=== PATIENT | male | born 1960 | race Caucasian/White ===

== ENCOUNTER → 2016-08-01 | Outpatient (CLI) | payer BC ==
[~2016-08-01] MED LIST: GADOBUTROL 10 MMOL/10 ML VIAL IV ONE
--- NOTE | 2016-08-01 12:58 | RAD ---
PROCEDURE MRI brain without and with contrast. HISTORY Vision changes, temporary blindness in the right eye 3 days ago TECHNIQUE Multiplanar, multi sequential pre and post contrast MR imaging was performed of the brain. Contrast: 10 cc Gadavist COMPARISON None FINDINGS There is no restricted diffusion suggestive of a recent infarct or cytotoxic edema. There is no intra-axial mass effect, midline shift, extra-axial fluid collection. No nodular parenchymal or leptomeningeal enhancement is identified. Ventricles, sulci, cisterns are within normal limits in size and configuration. There is no significant focal signal abnormality including hemosiderin deposition of the brain parenchyma. There is preservation of the major arterial intracranial flow voids at the skull base. Mastoid air cells are aerated. There is mild maxillary sinus mucosal thickening, also patchy mild bilateral ethmoid air cell mucosal thickening. Frontal sinus is not pneumatized. Globes are symmetric in size and signal characteristics. IMPRESSION 1. There is no significant intracranial abnormality. Electronically signed by: Rafael Momin MD (Aug 01, 2016 12:57:04)
== END | disposition home or self-care (01) ==
LOC: MRI 10:42
PROVIDERS: ATTEND Physician Assistant Medical
DX: H53.9 Unspecified visual disturbance (principal)
CPT/HCPCS: 70553; A9585

== ENCOUNTER → 2019-06-14 | Outpatient (CLI) | payer BC ==
--- NOTE | 2019-06-14 12:06 | KCIC ---
EXAMINATION: Magnetic resonance imaging (MRI) of the cervical spine without contrast 06/14/2019 10:15 AM HISTORY: Cervicalgia. Acute left upper extremity pain and numbness for 5 weeks. TECHNIQUE: Multiplanar multi-weighted MRI of the cervical spine was performed without intravenous contrast using the standard cervical spine protocol. Contrast information: None administered COMPARISON: None available. FINDINGS: There is minimal retrolisthesis of C5 on C6. Mild disc height loss at C5-C6 with Modic type II endplate degenerative changes. There is disc desiccation at all levels of the cervical spine. Vertebral body heights are maintained. Moderate intramarginal ossified ptosis is present. No acute fracture is present. No marrow edema. Cervical spinal cord signal intensity is normal on all sequences. Visualized portions of the posterior fossa appear normal. Vertebral artery flow voids are maintained. There is no prevertebral soft tissue swelling. No paraspinal soft tissue abnormality is identified. C2-C3: There is mild disc bulge. No significant facet arthropathy. Mild uncovertebral joint disease. No neuroforaminal or spinal canal stenosis. C3-C4: There is mild disc bulge. Mild uncovertebral joint disease. No significant facet arthropathy. Mild bilateral neuroforaminal stenosis. No spinal canal stenosis. C4-C5: There is mild disc bulge. Mild facet and uncovertebral joint disease. Mild left neuroforaminal stenosis. No spinal canal stenosis. C5-C6: There is a posterior disc osteophyte complex. There is mild facet arthropathy. Moderate uncovertebral joint disease. Moderate to severe bilateral neuroforaminal stenosis. Mild spinal canal stenosis, exacerbated by ligamentum flavum infolding. No compression of the cord or cord signal alteration. C6-C7: There is a disc bulge. There is mild facet and uncovertebral joint disease. Moderate to severe bilateral neuroforaminal stenosis. Mild spinal canal stenosis without deformity of the cord. C7-T1: Disc is normal in configuration. No neuroforaminal or spinal canal stenosis. IMPRESSION: Moderate degenerative changes of the cervical spine, most prominent at C5-C6 and C6-C7 as described in detail above. Electronically signed by: Sandy Barnes MD (06/14/2019 12:03 PM) [facility]
== END | disposition home or self-care (01) ==
LOC: KCIC MRI 10:10
PROVIDERS: ATTEND Physician Assistant Medical
DX: M50.21 Other cervical disc displacement, high cervical region (principal); M48.02 Spinal stenosis, cervical region; M47.812 Spondylosis without myelopathy or radiculopathy, cervical region; M25.78 Osteophyte, vertebrae; M12.88 Other specific arthropathies, not elsewhere classified, other specified site
CPT/HCPCS: 72141

== ENCOUNTER → 2019-08-04 | Outpatient (CLI) | payer BC ==
[~2019-08-04] MED LIST changes: +CELE100C PO; -GADOBUTROL 10 MMOL/10 ML VIAL IV ONE; +IOHEXOL 180 MG/ML 10 ML VIAL. ONE; +methylPREDNISolone ACETATE 40 MG/ML VIAL. ONE; +methylPREDNISolone ACETATE 80 MG/ML VIAL. ONE
--- NOTE | 2019-08-04 21:38 | PAIN ---
DATE OF SERVICE: 08/04/2019 INITIAL CONSULTATION FOR PAIN CLINIC CHIEF COMPLAINT: Neck and left upper extremity pain. HISTORY OF PRESENT ILLNESS: This is a 59-year-old male who presents with history of pain since about 12/2018. The pain in the base of the neck, shoulder on the left side radiating to the left upper extremity into the arm, bicep and tricep region as well as the forearm anteriorly and posteriorly into the thumb and first and second fingers with some numbness and tingling in the hand. The patient reports it is getting worse with time, not a result of any specific injury or action he is aware of, but it is getting worse as time goes on. The pain is not resolved. He tried some stretching and strengthening exercises, also has tried chiropractic treatment in the past without significant improvement. He is taking Tylenol as well as Celebrex, both of which do decrease the pain, but only mildly. The patient had no other formal physical therapies or other treatments at this time. The patient did have MRI scan of the cervical spine showing moderate degenerative changes of cervical spine, most prominent at C5-C6 and C6-C7 with moderate to severe bilateral neural foraminal stenosis and mild spinal canal stenosis at C6-C7 and mild facet arthropathy with moderate to severe bilateral neural foraminal stenosis at C5-C6 as well. The patient reports it is worse with repetitive motions, reaching over his head with his left hand, reaching forward, lifting items, driving the car with his left arm and awakens him from sleep at least twice a night, does not affect his bowel or bladder control or his ability to walk, reports it is generally better at rest, but it can awaken him from sleep. The patient describes the pain as constant, throbbing, tingling, numbness, radiating pain in the left arm and hand, especially thumb and first and second fingers burning, aching, and changes during the day with activity. The patient rates his disability rate from 0-10, 10 being the worst, is a 6 with family home responsibilities and social activity, 7 with recreation and occupation, 8 with sexual behavior, 0 with self-care and, 1 with life support activities. PAST MEDICAL HISTORY: Significant for hearing loss, the patient wears hearing aids, wears glasses, diverticulosis, arthritis, low back pain. SURGICAL HISTORY: Previous surgeries include lumbar laminectomy in 2016, diverticulosis surgery with colostomy, which was then taken down in 1997. CURRENT MEDICATIONS: Include Tylenol and Celebrex. ALLERGIES: THE PATIENT IS ALLERGIC TO MORPHINE. FAMILY HISTORY: Significant for lung disease, cancers, heart disease and diverticulitis. SOCIAL HISTORY: The patient drinks about 4 beers a week. No other alcohol use, chewing tobacco. He does not smoke. Denies any illegal, illicit or recreational drugs. He is , lives with his spouse, lives locally in [place], [place]. REVIEW OF SYSTEMS: The patient's review of systems is positive for those items mentioned in history of present illness. All systems reviewed and otherwise negative. It is complete, full and well documented on the patient's chart. PHYSICAL EXAMINATION: VITAL SIGNS: The patient's blood pressure 133/74, pulse 83, respirations 18, temperature 98.2 degrees Fahrenheit, height is 5 feet 10 inches, weight is 262 pounds. GENERAL: The patient is awake, alert, oriented, appropriate, very pleasant demeanor. HEENT: Head shows normocephalic, atraumatic. Extraocular movements are intact and symmetrical. Oral cavity: Mucous membranes moist and pink. Dentition is intact. NECK: Shows anterior throat supple without palpable lymphadenopathy noted. Swallow reflex symmetrical. CHEST: Shows normal on inspection. Breath sounds are clear bilaterally. HEART: Shows S1, S2 clear. No murmurs auscultated. ABDOMEN: Obese, soft, nontender, nondistended. No palpable organomegaly is noted. No rebound or guarding demonstrated. BACK: Shows spine grossly in the midline, normal-appearing cervical lordotic curvature and thoracic kyphotic curvature, minor flattening of lumbar lordotic curvature with well-healed surgical scar in the lumbar distribution. Cervical paraspinous muscle shows symmetrical on inspection, with palpation shows some mild tenderness inferiorly in the lower cervical paraspinous musculature, more on the left than the right, but present bilaterally. This is true into the superior medial and lateral trapezius bilaterally, but more tender on the left than the right, without asymmetry, without trigger points, without radiation. The patient has full rotational motion of cervical spine, both laterally greater than 45 degrees closer to 90 degrees as well as full 90 degrees, full extension, full forward flexion chin to chest without difficulty. EXTREMITIES: The patient's upper extremities show deep tendon reflexes at 2+ in the biceps, triceps tendons. Motor exam is strong with programmer business strength rated at 5/5 as is bicep and tricep flexion. Peripheral pulses are 2+ radial distribution. No peripheral edema is noted bilaterally. Shoulder shrug is strong and intact without loss of strength on resistance as is abduction of shoulder to 90 degrees. Some minor pain in the base of the left shoulder and deltoid, but no loss of strength with any of these maneuvers. SKIN: Shows warm and dry, good turgor. No edema. No sores, rashes or bruising. IMPRESSION: 1. This is a 59-year-old male who has history of approximately 7 months increased pain, base of the neck, left upper extremity in a radicular fashion. 2. MRI scan of cervical spine as noted. 3. Arthritis. 4. Hearing loss. PLAN: Options were discussed with the patient including conservative medical management, physical therapy, interventional techniques. He would like to pursue interventional techniques. We discussed a cervical epidural steroid injection using description as well as anatomical models to describe the procedure. Risks were then discussed including, but not limited to bleeding, infection, possibility of epidural hematoma, subsequent neurological compromise, dural puncture, headaches, spinal cord and/or nerve damage, side effects of steroid medication and poor results regarding pain control. The patient understands and wished to proceed. The patient will return to clinic in approximately 2 weeks for followup. He was counseled on return appointment, activity level and side effects to be aware of. DIAGNOSES: Cervical radiculopathy with cervical spinal stenosis and cervical degenerative disk disease. PROCEDURE: Cervical epidural steroid injection, translaminar approach C6-C7 level using C-arm fluoroscopic guidance under sterile prep and drape using local anesthetic. MEDICATION INJECTED: A total of 120 mg Depo-Medrol plus 5 mL of preservative-free normal saline and 2 mL of contrast. CONDITION AT DISCHARGE: Stable. The patient tolerated the procedure well, had no complications. BRITTANY AVILA MD DR: KATE/candice JOB#: [id number] / [id number]
== END ==
LOC: PNCL 10:18
PROVIDERS: ATTEND Anesthesiology
DX: M50.123 Cervical disc disorder at C6-C7 level with radiculopathy (principal); M48.02 Spinal stenosis, cervical region; K57.30 Diverticulosis of large intestine without perforation or abscess without bleeding; Z87.39 Personal history of other diseases of the musculoskeletal system and connective tissue; Z93.3 Colostomy status; Z98.890 Other specified postprocedural states; Z88.6 Allergy status to analgesic agent; Z72.89 Other problems related to lifestyle
CPT/HCPCS: 62321; J1030; J1040; Q9965

== ENCOUNTER → 2019-08-18 | Outpatient (CLI) | payer BC ==
--- NOTE | 2019-08-18 14:01 | PAIN ---
DATE OF SERVICE: 08/18/2019 PROGRESS NOTE FOR PAIN CLINIC DIAGNOSES: Cervical radiculopathy with cervical spinal stenosis, cervical degenerative disk disease. HISTORY OF PRESENT ILLNESS: The patient is a 59-year-old male, who returns for followup, status post cervical epidural steroid injection x 1. The patient reports his back is doing much better and upper neck and shoulders, but still some significant pain radiating to the left upper extremity. The patient reports he has been increasing his activity with greater ability to do work activities, home activities with much greater ease and comfort, sleeping better at night, does not awaken him from sleep most nights, but does occasionally if he lays on his left side. The patient reports his pain is 8 on a scale of 10 at its worst over the past week, 7 on average, 6 at its least and is a 7 today. The patient reports it is aching and dull, tingling, becoming more constant with time, but again improved significantly after the first injection by about 50%. The patient reports no new motor or sensory deficits, no new changes. PHYSICAL EXAMINATION: VITAL SIGNS: The patient's blood pressure 123/83, pulse 80, respirations 18, temperature 97.7 degrees Fahrenheit, weight is 267 pounds. GENERAL: The patient is awake, alert, oriented, appropriate, very pleasant demeanor. HEENT: Shows normocephalic, atraumatic. Extraocular movements are intact and symmetrical. Oral cavity: Mucous membranes moist and pink. Dentition is intact. NECK: Shows anterior throat supple without palpable lymphadenopathy noted. Swallow reflex symmetrical. CHEST: Shows normal on inspection. Breath sounds clear to auscultation bilaterally. HEART: Shows S1, S2 clear. No murmurs auscultated. ABDOMEN: Soft, nontender, nondistended. BACK: Shows spine grossly in the midline. Normal-appearing thoracic kyphosis and some minor flattening of lumbar lordotic curvature. Well-healed surgical scar noted in the lumbar distribution. Lumbar paraspinous muscle shows symmetrical on inspection, on palpation shows some moderate tenderness diffusely in the cervical paraspinous muscles bilaterally in the inferior aspect of the cervical paraspinous muscles, also into the superior medial trapezius, but only diffusely. The patient has good rotational motion of cervical spine, both laterally as well as extension and flexion without significant difficulty. EXTREMITIES: The patient's upper extremities show deep tendon reflexes at 2+ in the patellar, 2+ in the biceps and triceps tendons. Motor exam is strong with business management consultant strength rated at 5/5 as is bicep and tricep flexion. Peripheral pulses are 2+ radial. No peripheral edema is noted. Shoulder shrug is strong and intact without loss of strength on resistance. Options were discussed with the patient. The patient's old chart was reviewed as his current medication regimen updated. Current review of systems updated today as well. We will proceed with a second in the series of cervical epidural steroid injection today with fluoroscopic guidance. Risks were again discussed including, but not limited to bleeding, infection, possibility of epidural hematoma, subsequent neurological compromise, dural puncture, headaches, spinal cord and/or nerve damage, side effects of steroid medication and poor results regarding pain control. The patient understands and wished to proceed. The patient will return to clinic in approximately 2 weeks for followup. He was counseled on return appointment, activity level and side effects to be aware of. DIAGNOSES: Cervical radiculopathy with cervical spinal stenosis, cervical degenerative disk disease. PROCEDURE: Cervical epidural steroid injection, translaminar approach at C6-C7 level using C-arm fluoroscopic guidance under sterile prep and drape using local anesthetic. MEDICATION INJECTED: A total of 120 mg Depo-Medrol plus 5 mL of preservative-free normal saline and 2 mL of contrast. CONDITION AT DISCHARGE: Stable. The patient tolerated procedure well, had no complications. BRITTANY AVILA MD DR: KATE/candice JOB#: [id number] / [id number]
== END ==
LOC: PNCL 10:14
PROVIDERS: ATTEND Anesthesiology
DX: M50.123 Cervical disc disorder at C6-C7 level with radiculopathy (principal); M48.02 Spinal stenosis, cervical region
CPT/HCPCS: 62321; J1030; J1040; Q9965

== ENCOUNTER → 2019-09-01 | Outpatient (CLI) | payer BC ==
[~2019-09-01] MED LIST changes: -IOHEXOL 180 MG/ML 10 ML VIAL. ONE; +IOHEXOL 240 MG/ML 50ML VIAL. ONE
--- NOTE | 2019-09-01 13:39 | PAIN ---
DATE OF SERVICE: 09/01/2019 PROGRESS NOTE FOR PAIN CLINIC DIAGNOSES: 1. Cervical radiculopathy with cervical degenerative disk disease and cervical spinal stenosis. 2. Lumbar radiculopathy with lumbar post-laminectomy syndrome. HISTORY OF PRESENT ILLNESS: The patient is a 59-year-old male who returns for followup status post cervical epidural steroid injection x 2. The patient reports about 10% improvement after the last injection overall. The patient reports initially it was about 70%, but the pain began to return in his neck and left upper extremity and is still fairly painful with activity, repetitive motions, reaching items and lifting items with weightbearing on the left arm. The patient reports it is an 8 on a scale of 10 at its worst over the past week, 6 on average, 6 at its least and is a 6 today. The patient describes it as tingling and burning, dull in the base of the neck, aching and shooting into the left upper extremity and into the thumb and first finger. The patient reports no new motor or sensory deficits or other complaints. The patient reports it does awaken him from sleep at night, but only about once every 6 hours. PHYSICAL EXAMINATION: VITAL SIGNS: The patient's blood pressure 137/72, pulse 77, respirations 18, temperature 97.6 degrees Fahrenheit, height is 5 feet 10 inches, weight is 269 pounds. GENERAL: The patient is awake, alert, oriented, appropriate, very pleasant demeanor. HEENT: Shows normocephalic, atraumatic. Extraocular movements are intact and symmetrical. Oral cavity: Mucous membranes moist and pink. Dentition is intact. NECK: Shows anterior throat supple without palpable lymphadenopathy noted. Swallow reflex symmetrical. CHEST: Shows normal on inspection. Breath sounds clear bilaterally. HEART: Shows S1, S2 clear. No murmurs auscultated. ABDOMEN: Soft, nontender, nondistended. No palpable organomegaly is noted. No rebound or guarding demonstrated. BACK: Shows spine grossly in the midline. Normal appearing thoracic kyphosis and lumbar lordotic curvature is slightly flattened with well-healed surgical scar noted. Lumbar paraspinous muscle shows symmetrical on inspection, on palpation shows some moderate tenderness diffusely bilaterally going diffusely without radiation. The patient's neck shows cervical spine with normal lordotic curvature, with palpation shows some moderate tenderness throughout the middle and lower distribution of paraspinous musculature, more on the left than the right, but present bilaterally with good rotational motion of the cervical spine, however, both laterally as well as extension and flexion, right and left lateral rotation without significant pain reported. EXTREMITIES: The patient's upper extremities show deep tendon reflexes at 2+ in the biceps and triceps tendons. Motor exam is strong with maintenance scheduler strength rated at 5/5 and equal bilaterally. Peripheral pulses are 2+ in radial distribution. No peripheral edema is noted. Options were discussed with the patient. The patient's old chart was reviewed as his current medication regimen updated. Current review of systems updated today as well. We will proceed with a third in the series of cervical epidural steroid injection today with fluoroscopic guidance. Risks were again discussed including, but not limited to bleeding, infection, possibility of epidural hematoma, subsequent neurological compromise, dural puncture, headaches, spinal cord and/or nerve damage, side effects of steroid medication and poor results regarding pain control. The patient understands and wished to proceed. The patient will return to clinic in approximately 2 weeks for followup. He was counseled on return appointment, activity level and side effects to be aware of. DIAGNOSES: Cervical radiculopathy with cervical spinal stenosis and cervical degenerative disk disease. PROCEDURE: Cervical epidural steroid injection, translaminar approach at C6-C7 level using C-arm fluoroscopic guidance under sterile prep and drape using local anesthetic. MEDICATION INJECTED: A total of 120 mg Depo-Medrol plus 5 mL of preservative-free normal saline and 2 mL of contrast. CONDITION AT DISCHARGE: Stable. The patient tolerated the procedure well, had no complications. BRITTANY AVILA MD DR: KATE/candice JOB#: [id number] / [id number]
== END ==
LOC: PNCL 10:01
PROVIDERS: ATTEND Anesthesiology
DX: M50.123 Cervical disc disorder at C6-C7 level with radiculopathy (principal); M54.16 Radiculopathy, lumbar region; M96.1 Postlaminectomy syndrome, not elsewhere classified; M48.061 Spinal stenosis, lumbar region without neurogenic claudication
CPT/HCPCS: 62321; J1030; J1040; Q9966

== ENCOUNTER → 2019-11-01 | Outpatient (CLI) | payer BC ==
[~2019-11-01] MED LIST changes: +HYDR-2763 PO; -IOHEXOL 240 MG/ML 50ML VIAL. ONE; +TRAM100T36 PO; -methylPREDNISolone ACETATE 40 MG/ML VIAL. ONE; -methylPREDNISolone ACETATE 80 MG/ML VIAL. ONE
== END | disposition home or self-care (01) ==
LOC: LAB 14:23
PROVIDERS: ATTEND Internal Medicine Gastroenterology
DX: Z01.812 Encounter for preprocedural laboratory examination (principal); Z11.59 Encounter for screening for other viral diseases; Z86.010 Personal history of colon polyps
CPT/HCPCS: 36415; 87635

== ENCOUNTER → 2019-11-04 | Day surgery (SDC) | payer BC ==
[~2019-11-04] MED LIST changes: +IV RINGERS,LACTATED 1000ML 1,000 ML IV SCH; +LIDOCAINE 2% PF 5 ML VIAL. ONE; +PROPOFOL 10 MG/ML (20ML) VIAL. IV ONE
[2019-11-04 09:42] VITALS: BP 140/75
--- NOTE | 2019-11-04 09:48 | HP ---
ADMIT DATE: 11/04/2019 UPDATED HISTORY AND PHYSICAL REASON: History of colonic polyps. REFERRING PHYSICIAN: CRISTHIAN Nobles HISTORY OF PRESENT ILLNESS: A 59-year-old male with past medical history significant for colonic polyps, diverticulosis, osteoarthritis, is seen for interval colonoscopy. Bowel habits are regular without diarrhea or constipation. There has been no melena and/or hematochezia. Weight and appetite are stable. He is otherwise without additional complaints. PAST MEDICAL HISTORY: Diverticular disease, colonic polyps, osteoarthritis. ALLERGIES: MORPHINE. MEDICATIONS: Include hydrocodone, tramadol. FAMILY HISTORY: Significant for lung cancer in both parents, stroke with a grandmother, cirrhosis with a grandfather, dementia with another grandmother. SOCIAL HISTORY: He is a social drinker, does chew tobacco. PAST SURGICAL HISTORY: Noncontributory. REVIEW OF SYSTEMS: Per records. PHYSICAL EXAMINATION: GENERAL: Reveals a well-nourished, well-developed male who is alert, cooperative, in no acute distress. VITAL SIGNS: Temperature 97.6, pulse 68, respiratory rate 18. LUNGS: Clear. CARDIOVASCULAR: Reveals an S1, S2 without S3, S4 or appreciable murmur. ABDOMEN: Reveals a soft abdomen, normal bowel sounds, without appreciable hepatosplenomegaly. EXTREMITIES: Reveals no cyanosis, clubbing or edema. IMPRESSION AND PLAN: History of colonic polyps. Surveillance exam is recommended at this time. Risks and benefits of procedure including risk of hemorrhage and perforation requiring operation have been discussed and the patient is willing to proceed. LETITIA STEVENS MD DR: RICKEY/candice JOB#: [id number] / [id number] JUSTUS Andrade
--- NOTE | 2019-11-07 16:06 | PATHOLOGY ---
[facility] Accession Number: [id number] . 01 Material submitted: . cecum - CECAL POLYP . 02 Diagnosis: Colon biopsies, cecal polyp: - Hyperplastic polyp. (JPM:lesli; 11/07/2019) S 11/07/2019 0930 Local . 02 Comment: There are no adenomatous changes or evidence of malignancy. (JPM:lesli; 11/07/2019) . 02 Electronically signed: . Nakul Martínez MD, Pathologist NPI- [id number] . 01 Gross description: . The specimen is received in formalin, labeled "Roniki, Walter, cecal polyp" and consists of multiple fragments of lal tissue measuring 0.9 x 0.4 x 0.1 cm in aggregate which are entirely submitted in A1. ([facility]; 11/04/2019) JFQ/JFQ 11/04/2019 1639 Local . 02 Pathologist provided ICD-10: K63.5 . 02 CPT . 725165 Specimen Comment: A courtesy copy of this report has been sent to [phone], [phone] Specimen Comment: [id number] Specimen Comment: Report sent to / DR ALVARADO Performed at: 01 [facility] [address], [place] [id number] MD Jet Ramos MD Phone: [phone] Performed at: 02 [facility] [address], [place] [id number] MD Nakul Martínez MD Phone: [phone]
== END | disposition home or self-care (01) ==
LOC: ENDOS 08:04
PROVIDERS: ATTEND Internal Medicine Gastroenterology
DX: Z12.11 Encounter for screening for malignant neoplasm of colon (principal); D12.0 Benign neoplasm of cecum; K64.0 First degree hemorrhoids; K57.30 Diverticulosis of large intestine without perforation or abscess without bleeding; M19.90 Unspecified osteoarthritis, unspecified site; Z86.010 Personal history of colon polyps; Z88.8 Allergy status to other drugs, medicaments and biological substances; Z79.899 Other long term (current) drug therapy; Z80.1 Family history of malignant neoplasm of trachea, bronchus and lung; Z82.3 Family history of stroke
CPT/HCPCS: 45380; J2704; J3490; 45378

== ENCOUNTER → 2019-12-08 | Outpatient (CLI) | payer BC ==
[2019-11-04 09:42] VITALS: BP 140/75
[~2019-12-08] MED LIST changes: +DOCU-153 PO; +HYDR-2765 PO; -IV RINGERS,LACTATED 1000ML 1,000 ML IV SCH; -LIDOCAINE 2% PF 5 ML VIAL. ONE; -PROPOFOL 10 MG/ML (20ML) VIAL. IV ONE
[2019-12-08 14:02] LABS: BASO % 1 % (0-3); EOS # 0.2 x10^3/uL (0.0-0.7); EOS % 3 % (0-3); HEMATOCRIT 45.8 % (39.0-53.0); HEMOGLOBIN 15.3 g/dL (13.0-17.5); LYMPH # 2.6 x10^3/uL (1.0-4.8); LYMPH % 36 % (24-48); MEAN CORPUSCULAR HEMOGLOBIN 30 pg (25-35); MEAN CORPUSCULAR HGB CONC 33 g/dL (31-37); MEAN CORPUSCULAR VOLUME 89 fL (79-100); MONO # 0.7 x10^3/uL (0.0-1.1); MONO % 10 % (0-9); NEUT # 3.7 x10^3/uL (1.8-7.7); NEUT % 51 % (31-73); PLATELET COUNT 299 x10^3/uL (140-400); RED BLOOD COUNT 5.16 x10^6/uL (4.30-5.70); RED CELL DISTRIBUTION WIDTH 12.6 % (11.5-14.5); WHITE BLOOD COUNT 7.2 x10^3/uL (4.0-11.0)
[2019-12-08 14:19] LABS: ALBUMIN 3.6 g/dL (3.4-5.0); ALBUMIN/GLOBULIN RATIO 1.2 (1.0-1.7); CALCIUM 8.8 mg/dL (8.5-10.1); CREATININE 1.1 mg/dL (0.7-1.3); GFR 68.1; POTASSIUM 4.2 mmol/L (3.5-5.1); TOTAL BILIRUBIN 0.2 mg/dL (0.2-1.0); TOTAL PROTEIN 6.7 g/dL (6.4-8.2)
--- NOTE | 2019-12-12 09:55 | HP ---
ADMIT DATE: PREOPERATIVE HISTORY AND PHYSICAL Joe Martinez RN dictating for Dr. Arturo Mccord. DATE OF SURGERY: 12/14/2019. HISTORY OF PRESENT ILLNESS: The patient is a pleasant 59-year-old who underwent epidural steroid injections. He says it did not help with neck and left arm pain. He continues to notice numbness. He also has a tingling sensation and/or pain in his thumb and index and middle fingers. He rates his pain as 7-8/10. The problem is worse at night. Activity increases his pain. He uses ice and medications. He takes tramadol during the day and hydrocodone at night. PAST MEDICAL HISTORY: Gout and GERD. PAST SURGICAL HISTORY: Colostomy. FAMILY HISTORY: Aneurysm, cancer, heart disease and hypertension. SOCIAL HISTORY: Retired. . Does not smoke. Does not drink alcohol. ALLERGIES: No known drug allergies. CURRENT MEDICATIONS: Flexeril, Celebrex, tramadol, [place]. REVIEW OF SYSTEMS: A 12-point review of systems was obtained and is noncontributory except for that mentioned above. PHYSICAL EXAMINATION: GENERAL APPEARANCE: Alert, pleasant, in no acute distress. HEAD: Normocephalic and atraumatic. SKIN: Warm and dry. MUSCULOSKELETAL: Cervical paraspinal muscle bulk is normal, restricted range of motion of the cervical spine, [id number] tenderness of the mid and lower cervical spine with palpation. EXTREMITIES: No clubbing, cyanosis, or edema. NEUROLOGIC: Alert and oriented x 3, normal recent and remote memory. Strength 5/5 in bilateral upper and lower extremities. Sensory was intact to light touch in the upper and lower extremities bilaterally except for decreased light touch involving the thumb, index and middle fingers of his left hand, reflexes were trace and symmetric in bilateral upper and lower extremities, normal gait. IMAGING: Reviewed. I reviewed a cervical MRI scan from May 2019. On that study, there was significant foraminal narrowing, both at C5-C6 and C6-C7 bilaterally. ASSESSMENT: 1. Other spondylosis with radiculopathy, cervical region. 2. Cervicalgia. PLAN: I believe the problems at C5-C6 and C6-C7 are responsible for his left cervical radiculopathy. I have recommended a 2-level anterior cervical diskectomy and fusion. I did discuss this with him in detail including the technique, and surgery along with the risks. I outlined the surgery including risk of injury and carotid artery and stroke as well as injury to the trachea and esophagus, paralysis, failure to fusion, and . I outlined the expected postoperative course. He understands. He would like to go ahead with the surgery. We will make the arrangements. ARTURO MCCORD MD DR: MICKI/candice JOB#: [id number] / [id number]
== END ==
LOC: SURGPAT 12:39
PROVIDERS: ATTEND Neurological Surgery
DX: Z01.818 Encounter for other preprocedural examination (principal); Z11.59 Encounter for screening for other viral diseases; M54.2 Cervicalgia; M48.02 Spinal stenosis, cervical region; M54.12 Radiculopathy, cervical region
CPT/HCPCS: 36415; 80053; 85025; 87641; U0003

== ENCOUNTER 2019-12-14 10:01 | Observation (INO) | payer BC ==
[~2019-12-14] VITALS: Ht 177.8 cm; Wt 112.0 kg
[2019-12-14] VITALS (11 sets, daily range): BP systolic 111–133; BP diastolic 63–90
--- NOTE | 2019-12-14 06:51 | HP ---
ADMIT DATE: 12/14/2019 PREOPERATIVE HISTORY AND PHYSICAL DATE OF SURGERY: 12/14/2019. HISTORY OF PRESENT ILLNESS: The patient is a pleasant 59-year-old who underwent epidural steroid injections. He says it did not help with neck and left arm pain. He continues to notice numbness. He also has a tingling sensation and/or pain in his thumb and index and middle fingers. He rates his pain as 7-8/10. The problem is worse at night. Activity increases his pain. He uses ice and medications. He takes tramadol during the day and hydrocodone at night. PAST MEDICAL HISTORY: Gout and GERD. PAST SURGICAL HISTORY: Colostomy. FAMILY HISTORY: Aneurysm, cancer, heart disease and hypertension. SOCIAL HISTORY: Retired. . Does not smoke. Does not drink alcohol. ALLERGIES: No known drug allergies. CURRENT MEDICATIONS: Flexeril, Celebrex, tramadol, [place]. REVIEW OF SYSTEMS: A 12-point review of systems was obtained and is noncontributory except for that mentioned above. PHYSICAL EXAMINATION: GENERAL APPEARANCE: Alert, pleasant, in no acute distress. HEAD: Normocephalic and atraumatic. SKIN: Warm and dry. MUSCULOSKELETAL: Cervical paraspinal muscle bulk is normal, restricted range of motion of the cervical spine, tqmt-tf-wzelofar tenderness of the mid and lower cervical spine with palpation. EXTREMITIES: No clubbing, cyanosis, or edema. NEUROLOGIC: Alert and oriented x 3, normal recent and remote memory. Strength 5/5 in bilateral upper and lower extremities. Sensory was intact to light touch in the upper and lower extremities bilaterally except for decreased light touch involving the thumb, index and middle fingers of his left hand, reflexes were trace and symmetric in bilateral upper and lower extremities, normal gait. IMAGING: I reviewed a cervical MRI scan from May 2019. On that study, there was significant foraminal narrowing, both at C5-C6 and C6-C7 bilaterally. ASSESSMENT/ PLAN: I believe the problems at C5-C6 and C6-C7 are responsible for his left cervical radiculopathy. I have recommended a 2-level anterior cervical diskectomy and fusion. I did discuss this with him in detail including the technique, and surgery along with the risks. I outlined the surgery including risk of injury and carotid artery and stroke as well as injury to the trachea and esophagus, paralysis, failure to fusion, and . I outlined the expected postoperative course. He understands. He would like to go ahead with the surgery. We will make the arrangements. WEN MCCORD MD DR: MICKI/candice JOB#: [id number] / [id number] RENUKA
[~2019-12-14 10:01] MED LIST changes: +BACITRACIN 50,000 UNIT in IV NORMAL SALINE 1000ML BAG 1,000 ML IRR ONE; +BUPIVACAINE-EPI 0.5%-1:200000 MPF 30 ML VIAL. ONE; +DEXAMETHASONE SOD PHOS 20 MG/5 ML VIAL. ONE; -DOCU-153 PO; +GELATIN SPONGE SIZE 100. ONE; +HYDROmorphone 2 MG/ML VIAL IV PRN; +IV RINGERS,LACTATED 1000ML 1,000 ML IV SCH; +KETOROLAC 60 MG/2 ML VIAL. ONE; +LIDOCAINE 1% PF 2 ML VIAL. ID PRN; +LIDOCAINE 2% PF 5 ML VIAL. ONE; +MIDAZOLAM HCL/PF 2 MG/2 ML VIAL. ONE; +ONDANSETRON PF 4 MG/2 ML VIAL. IV PRN; +ONDANSETRON PF 4 MG/2 ML VIAL. ONE; +PROCHLORPERAZINE 10 MG/2 ML VIAL. IV PRN; +PROPOFOL 10 MG/ML (20ML) VIAL. IV ONE; +PROPOFOL 200 ML IV ONE; +REMIFENTANIL 2 MG VIAL. IV ONE; +ROCURONIUM 50 MG/5 ML VIAL. ONE; +SUCCINYLCHOLINE 200 MG/10 ML VIAL. ONE; +THROMBIN TOPICAL 20,000 UNIT SPRAY.SYRN KIT TP ONE; +ceFAZolin 2GM PREMIX 2 GM/50 ML BAG IV ONE; +fentaNYL PF VIAL 100 MCG/2 ML VIAL IV PRN; +fentaNYL PF VIAL 100 MCG/2 ML VIAL ONE
[2019-12-14] MEDS ORDERED: DESFLURANE > 120 MINUTES IH ONE (14:03)
[2019-12-14] MEDS ORDERED: REMIFENTANIL 2 MG VIAL. IV ONE (14:43)
[2019-12-14] MEDS ORDERED: fentaNYL PF VIAL 100 MCG/2 ML VIAL IVP PRN (15:15)
[2019-12-14] MEDS ORDERED: ONDANSETRON PF 4 MG/2 ML VIAL. IVP PRN (15:15)
[2019-12-14] MEDS ORDERED: HYDROcodone/APAP 7.5/325MG 1 TAB TABLET PO PRN (15:15)
[2019-12-14] MEDS ORDERED: diphenhydrAMINE HCL 25 MG CAPSULE PO PRN (15:15)
[2019-12-14] MEDS ORDERED: 0.9 % SODIUM CHLORIDE 10 ML DISP.SYRIN. IV PRN (15:15)
[2019-12-14] MEDS ORDERED: CALCIUM CARBONATE 500 MG TAB.CHEW PO PRN (15:15)
[2019-12-14] MEDS ORDERED: METHOCARBAMOL 750 MG TABLET PO PRN (15:15)
[2019-12-14] MEDS ORDERED: MAG HYDROX/ALUMINUM HYD/SIMETH 30 ML ORAL.SUSP PO PRN (15:15)
[2019-12-14] MEDS ORDERED: ACETAMINOPHEN 325 MG TABLET. PO PRN (15:15)
[2019-12-14] MEDS ORDERED: NALOXONE 0.4 MG/ML VIAL. IV PRN (15:15)
[2019-12-14] MEDS ORDERED: MAGNESIUM HYDROXIDE 2,400 MG/30 ML ORAL.SUSP. PO PRN (15:15)
[2019-12-14] MEDS ORDERED: NEOSTIGMINE METHYLSULFATE 5 MG/5 ML SYRINGE. ONE (15:50)
[2019-12-14] MEDS ORDERED: ePHEDrine PF IN SALINE 50 MG/10 ML SYRINGE. IV ONE (15:54)
[2019-12-14] MEDS: fentaNYL PF VIAL 100 MCG/2 ML VIAL IV PRN ×2 (16:39→16:46)
--- NOTE | 2019-12-14 16:47 | OP ---
DATE OF SURGERY: 12/14/2019 PREOPERATIVE DIAGNOSIS: Lateral recess and foraminal narrowing C5-C6, C6-C7 left with left cervical radiculopathy. POSTOPERATIVE DIAGNOSIS: Lateral recess and foraminal narrowing C5-C6, C6-C7 left with left cervical radiculopathy. OPERATION PERFORMED: Anterior cervical microdiscectomy C5-C6, C6-C7; anterior cervical interbody fusion, C5-C6, C6-C7 with interbody fusion cages, packed with allograft and autograft bone, anterior cervical plate, C5, C6, C7. The operation was done with EMG monitoring, SSEP monitoring, NIMS monitoring, motor evoked potentials. We used fluoroscopy, microscopic dissection. SURGEON: Arturo Mccord M.D. PLASTIC DUPLICATOR: THEODORA Painter assisted with the surgery. She assisted with the exposure, the microdecompression fusion, plate and closure. OPERATIVE INDICATIONS: The patient is a pleasant 59-year-old who developed intractable neck and left arm pain, which failed conservative measures. On imaging studies, he had above-mentioned findings and I recommended anterior cervical microdiscectomy and fusion. I spoke with him about the surgery and risks. He understood very well and he wished to go ahead. DESCRIPTION OF PROCEDURE: Following general endotracheal anesthesia, the patient was positioned supine on the operating room table. The anterior cervical region was then prepped and draped in standard fashion. KANIKA hose and AV impulse boots were applied for DVT prophylaxis. A microscope was draped. Fluoroscopy was draped and brought into field. Monitoring was established. Ancef 2 grams was given less than 1 hour prior to initiation of the surgery. Using fluoroscopic guidance, incision was made from the midline around to the right side in a skin crease, dissected down through skin and subcutaneous tissue, dissected around the medial aspect after sharply dividing the platysma. Sternocleidomastoid and carotid artery sheath down the anterior cervical vertebral body after reflecting the trachea and esophagus contralaterally, I placed Santa anterior retractors wedged in the longus colli muscle and exposed C5-C6 and C6-C7. I confirmed my position fluoroscopically. I brought in the high speed air drill and burred the spurring which allowed access to the disc space at C6-7 and then I worked laterally and performed discectomy with pituitary rongeurs. I drilled the posterior spurring and then used 1 and 2 mm micro Kerrisons to remove the annulus and opened the ligament with the arachnoid knife and worked bilaterally to trim the ligament and exposed the foramina. I assured that the foramina were open. I scraped cartilaginous endplate, measured and placed a 7 mm interbody fusion cage, which was packed with allograft and autograft bone. The autograft bone, I obtained saving the bone spurs and cage was not placed until I had obtained perfect hemostasis. Following this, then I removed distraction pin from C7 and moved to the C5 and distracted the disc space at C5-C6 and incised the annulus and performed a discectomy. Again, there was significant calcification and I trimmed this material away to gain access into the disc space and again performed a generous discectomy more posteriorly. I drilled the posterior spurring and opened the foramina bilaterally. At which point, the root was tightly compressed. I then obtained excellent hemostasis in the lateral gutters at C6-C7. I scraped cartilaginous endplate, measured and placed a 7 mm interbody fusion cage and then placed a [address] and used six 14 mm screws to secure the plate. I irrigated copiously, removed the retractor and I Valsalva the patient and assured myself of perfect hemostasis. I then closed the wound in layers with absorbable suture, skin with a 4-0 subcuticular stitch. I felt the surgery went very well and the patient was awakened uneventfully. The monitoring was excellent throughout. ARTURO MCCORD MD DR: MICKI/candice JOB#: [id number] / [id number] RENUKA
--- NOTE | 2019-12-14 17:30 | NUR ---
Patient arrived around 1715 from PACU in a bed. and sister at bedside. Soft collar in place. Dressing to right anterior neck dry and intact. Pain is being rated around a 5. Thigh high KANIKA hose on patient and MATILDE's. IV infusing properly without any complications noted. Patient and family were oriented to their room and the facility. No concerns at this time. Will continue to monitor.
[2019-12-14] MEDS: HYDROcodone/APAP 7.5/325MG 1 TAB TABLET PO PRN (17:32)
[2019-12-14] MEDS: DOCUSATE SODIUM 100 MG CAPSULE. PO SCH (21:05)
[2019-12-14] MEDS ORDERED: ceFAZolin SODIUM IV Push 1 GM VIAL. IVP SCH (22:00)
[2019-12-15] MEDS: POTASSIUM CL 20MEQ D5-0.45NACL 1,000 ML IV SCH ×2 (00:20→05:36)
[2019-12-15 02:43] VITALS: BP 133/67
[2019-12-15] MEDS: HYDROcodone/APAP 7.5/325MG 1 TAB TABLET PO PRN (02:47)
[2019-12-15 07:00] VITALS: BP 116/83
[2019-12-15] MEDS: DOCUSATE SODIUM 100 MG CAPSULE. PO SCH (09:06)
[2019-12-15] MEDS ORDERED: DOCU-153 PO (10:42)
--- NOTE | 2019-12-15 10:43 | DISCH ---
DISCHARGE INSTRUCTIONS Condition on Discharge Condition on Discharge: Stable Activity After Discharge Activity Instructions for Disc: Activity as tolerated, Avoid exertion Other activity instructions: no driving for a week, soft collar for comfort Bathing Instructions: Shower-keep dressing dry Lifting Instructions after Dis: No heavy lifting, No pulling or pushing, Do not lift >10 pounds Exercise Instruction after Dis: Exercise per therapy, Progress as tolerated Driving Instructions after Dis: Do not drive Diet after Discharge Additional Diet Restrictions: resume home diet, soft foods Wound Incision Care Wound/Incision Care: Ice to area for comfort, May get incision wet Other wound/incision instructi: May shower 48 hrs after surgery. Remove dressing and replace if desired Contacting the DR. after DC Call your doctor for: Concerns you may have Follow-Up Follow Up With: Dr Mccord's nurse in 2 weeks [phone] Treatment/Equipment after DC Adaptive Equipment Issued: None WEN MCCORD MD Dec 15, 2019 10:43
[2019-12-15 11:00] VITALS: BP 114/69
--- NOTE | 2019-12-15 11:42 | NUR ---
Patient left around 1140 with his . Dressing to anterior neck changed prior to dismissal per family request. Incision with no drainage noted or signs of infection present. Scripts given for robaxin and lortab to the patient. Discharge education addressed by this nurse in detail with the and patient. No concerns noted.
--- NOTE | 2019-12-15 19:45 | DS ---
DATE OF DISCHARGE: 12/15/2019 DATE OF SURGERY: 12/14/2019. DISCHARGE DIAGNOSES: Lateral recess stenosis and foraminal narrowing C5-C6, C6-C7 left with left cervical radiculopathy. OPERATION PERFORMED: Anterior cervical discectomy and fusion C5-C6, C6-C7. HISTORY OF PRESENT ILLNESS: The patient is a pleasant 59-year-old who developed intractable neck and left arm pain, which failed to improve with conservative measures. On imaging studies, he had the above-mentioned findings and I recommended an anterior cervical microdiskectomy and fusion. I spoke with him about the surgery and the risk. He understood and wished to proceed. HOSPITAL COURSE: He was admitted to the floor postoperatively where he has done well. He has been up ambulating in the room and in the halls. Physical therapy was initiated and instruction was given to him regarding his activities. He notes resolution of his left arm pain. He is in good condition to discharge home. DISCHARGE INSTRUCTIONS: He was instructed regarding incision care, activity restrictions and expectations for the next several weeks. He will follow up in our office in 2 weeks. He understands to call with any questions or concerns. WEN MCCORD MD DR: WILLIAMS/candice JOB#: [id number] / [id number]
--- NOTE | 2019-12-16 18:06 | PATHOLOGY ---
[facility] Accession Number: [id number] . 01 Material submitted: . vertebral column - CERVICAL DISC . 01 Clinical history: . Cervical stenosis, cervicalgia, radiculopathy . 02 Diagnosis: Segments of cartilaginous, fibroadipose, and skeletal muscle tissue and bone, cervical disc: - Degenerative changes of cartilaginous tissue. . ([facility]:mm; 12/16/2019) [facility] 12/16/2019 1539 Local . 02 Comment: There is no evidence of an acute inflammatory process or malignancy. . ([facility]:mm; 12/16/2019) . 02 Electronically signed: . Nakul Martínez MD, Pathologist NPI- [id number] . 01 Gross description: . The specimen is received in formalin, labeled "Walter Sutton, cervical disc". Received is a moderate amount of pale lal rubbery and gritty tissue admixed with small fragments of bone measuring 4.8 x 4.5 x 0.8 cm in aggregate dimensions. The specimen is submitted representatively in cassette A1, following light decalcification. ([facility]; 12/15/2019) [facility]A/[facility] 12/16/2019 1536 Local . 02 Pathologist provided ICD-10: M99.71, M54.2, M54.10 . 02 CPT . 560827, [id number] Specimen Comment: A courtesy copy of this report has been sent to [phone], [phone] Specimen Comment: [id number] Specimen Comment: Report sent to / DR ALVARADO Performed at: [address], [place], [place] [id number] MD Jet Ramos MD Phone: [phone] Performed at: 02 [facility] [address], [place] [id number] MD Nakul Martínez MD Phone: [phone]
== END 2019-12-15 11:45 | disposition home or self-care (01) ==
LOC: SURG 10:01 → 4 NORTH 16:30
PROVIDERS: ADMIT Neurological Surgery; ATTEND Neurological Surgery
DX: M48.02 Spinal stenosis, cervical region (principal); M54.12 Radiculopathy, cervical region; M10.9 Gout, unspecified; K21.9 Gastro-esophageal reflux disease without esophagitis; Z98.890 Other specified postprocedural states
CPT/HCPCS: 20930; 20937; 22551; 22552; 22853; 76000; 88304; 88311; 96365; 96366; 97161; C1713; G0378; G0379; J0330; J0690; J1100; J1885; J2250; J2405; J2704; J2710; J3010; J3480; J7030; J7120

== ENCOUNTER → 2020-12-26 | Outpatient (CLI) | payer BC ==
[~2020-12-26] MED LIST changes: -BACITRACIN 50,000 UNIT in IV NORMAL SALINE 1000ML BAG 1,000 ML IRR ONE; -BUPIVACAINE-EPI 0.5%-1:200000 MPF 30 ML VIAL. ONE; +CELE200C PO; -DEXAMETHASONE SOD PHOS 20 MG/5 ML VIAL. ONE; +DOCU-153 PO; -GELATIN SPONGE SIZE 100. ONE; -HYDROmorphone 2 MG/ML VIAL IV PRN; +IOHEXOL 180 MG/ML 10 ML VIAL. ONE; -IV RINGERS,LACTATED 1000ML 1,000 ML IV SCH; +KETO200T11 PO; -KETOROLAC 60 MG/2 ML VIAL. ONE; -LIDOCAINE 1% PF 2 ML VIAL. ID PRN; -LIDOCAINE 2% PF 5 ML VIAL. ONE; -MIDAZOLAM HCL/PF 2 MG/2 ML VIAL. ONE; -ONDANSETRON PF 4 MG/2 ML VIAL. IV PRN; -ONDANSETRON PF 4 MG/2 ML VIAL. ONE; -PROCHLORPERAZINE 10 MG/2 ML VIAL. IV PRN; -PROPOFOL 10 MG/ML (20ML) VIAL. IV ONE; -PROPOFOL 200 ML IV ONE; -REMIFENTANIL 2 MG VIAL. IV ONE; -ROCURONIUM 50 MG/5 ML VIAL. ONE; -SUCCINYLCHOLINE 200 MG/10 ML VIAL. ONE; -THROMBIN TOPICAL 20,000 UNIT SPRAY.SYRN KIT TP ONE; -ceFAZolin 2GM PREMIX 2 GM/50 ML BAG IV ONE; -fentaNYL PF VIAL 100 MCG/2 ML VIAL IV PRN; -fentaNYL PF VIAL 100 MCG/2 ML VIAL ONE; +methylPREDNISolone ACETATE 40 MG/ML VIAL. ONE; +methylPREDNISolone ACETATE 80 MG/ML VIAL. ONE
--- NOTE | 2020-12-26 09:52 | PDOC4 ---
Procedure Note: Procedure Note: Patient was consented for cervical epidural steroid injection. Risks were discussed including but not limited to: Bleeding, infection, possibility of epidural hematoma and subsequent neurological compromise, dural puncture, headaches, spinal cord and/or nerve damage, side effects of steroid medication, and poor results regarding pain control. Patient understands and wished to proceed. Procedure cervical epidural steroid injection at the C6-7 level, using local anesthetic under sterile prep and drape using C-arm fluoroscopic guidance under local anesthesia medications injected ;120 mg Depo-Medrol +5 mL normal saline and 2 mL contrast; condition at discharge is stable patient tolerated procedure well. and had no complications BRITTANY AVILA MD Dec 26, 2020 09:52
--- NOTE | 2020-12-26 09:52 | PDOC ---
Progress Note - Pain Clinic Date of Service: DOS: DATE: 12/26/20 TIME: 09:47 Diagnosis: Dx: Cervical radiculopathy the cervical spinal stenosis cervical degenerative disc disease and cervical postlaminectomy syndrome lumbar radiculopathy with lumbar postlaminectomy syndrome Right shoulder joint pain History or Present Illness: HPI: 60-year-old male returns for follow-up status post cervical epidural steroid injections last seen September 01, 2019. Patient had surgery last summer with cervical anterior fusion and discectomy with good results but reports still significant pain in the left upper extremity and left hand with numbness and tingling also patient fell about 1 week ago on his right shoulder while walking his dog with significant pain and difficulty with movement of the right shoulder. Patient has MRI scheduled tomorrow for the right shoulder but the appointment was made for today concerning his left upper extremity and numbness and tingling in the hand prior to his fall. Patient reports the pain is an 8 on scale 10 is worse over the past week 7 on average 6 its least and is a 7 today patient describes as sharp and tight tingling constant in the left hand and thumb and first finger hands were better after surgery but the left one has still has some persistent tingling and numbness also the base the neck right shoulder is tender with motion especially abduction and forward reaching since his fall last week. Patient reports no new motor or sensory deficits no new bowel or bladder incontinence patient reports initially was doing much better doing walking activities household activities work activities travel with greater ease and comfort with the pain again returning in left upper extremity and then since the fall his right shoulder. Physical Exam: VS: Blood pressure is 137/86 pulse 72 respirations 20 temperature 97.8 F weight is 262 pounds PE: PHYSICAL EXAMINATION: GENERAL: The patient is awake, alert, oriented, appropriate, very pleasant in demeanor HEENT: Shows normocephalic, atraumatic. Extraocular movements are intact and symmetrical. Patient wearing eyeglasses. Oral cavity: Mucous membranes moist and pink. Dentition is intact. NECK: Shows anterior throat supple without palpable lymphadenopathy noted. Swallow reflex symmetrical. CHEST: Shows normal on inspection. Breath sounds are clear bilaterally, distant but no rales or rhonchi. HEART: Shows S1, S2 clear. No murmurs auscultated. ABDOMEN: Soft, nontender, nondistended, obese. No palpable organomegaly is n oted. BACK: Shows spine grossly in the midline. Normal-appearing cervical lordotic curvature. Cervical paraspinous muscles show symmetrical inspection, on palpation some moderate tenderness diffusely in the inferior aspect the cervical paraspinous muscles diffusely without radiation. Patient shows full rotation motion cervical spine both laterally as well as extension flexion without significant difficulty. There is slightly increased thoracic kyphosis, some minor flattening of the lumbar lordotic curvature. Well-healed midline surgical scar is noted. Lumbar paraspinous muscles show symmetrical on inspection, on palpation shows some moderate tenderness diffusely throughout the upper, middle and lower distribution of the paraspinous muscles, but without specific trigger points, without radiation of pain. The patient has good rotational motion of the lumbar spine, both laterally as well as extension and flexion without significant difficulty. No tenderness over the spinous processes, sacrum or sacroiliac regions. EXTREMITIES: Lower extremities show deep tendon reflexes 1+ in the patellar and tendo calcaneus tendons. Motor exam is 5 on a scale of 5 with right dorsiflexion, extension, quadriceps and hamstring flexion and 5/5 on the left. Peripheral pulses are 1 posterior tibial. No peripheral edema is noted bilaterally. Lower extremities are warm and dry to touch, equal in color and appearance. Upper extremity show deep tendon reflexes 2+ in the bicep tricep tendons motor exam is strong with optoelectronic technician strength rated 5 out of 5 as is bicep and tricep flexion bilaterally. Peripheral pulses are 2+ radial no peripheral edema is noted. Patient's right shoulder shows significant tenderness with attempted abduction past about 40 degrees also with anterior reach both actively and passively significant tenderness over the anterior aspect of the deltoid with deep palpation is noted as well. Right side is normal. SKIN: Shows warm and dry, good turgor. No edema. No sores, rashes or bruising throughout. Procedure: Procedure: Options were discussed with patient. Patient chart reviewed his current medication regimen updated current review of systems updated today as well. We will proceed with a cervical epidural steroid injection today with fluoroscopic guidance. Risks were discussed including but not limited to: Bleeding, infection, possibility of epidural hematoma and subsequent neurological compromise, dural puncture, headaches, spinal cord and/or nerve damage, side effects of steroid medication, and poor results regarding pain control. Patient understands and wished to proceed. Patient will return to the clinic in approximate 2 weeks for follow-up, was counseled as to return appointment activity level and side effects to be aware of. Medication Injected: Med Injected: Procedure cervical epidural steroid injection at the C6-7 level, using local anesthetic under sterile prep and drape using C-arm fluoroscopic guidance under local anesthesia medications injected ;120 mg Depo-Medrol +5 mL normal saline and 2 mL contrast; condition at discharge is stable patient tolerated procedure well. and had no complications Condition at Discharge: Condition at Discharge: Condition at discharge stable, patient already the procedure well and had no complications. BRITTANY AVILA MD Dec 26, 2020 09:51
== END | disposition home or self-care (01) ==
LOC: PNCL 08:58
PROVIDERS: ATTEND Anesthesiology
DX: M50.10 Cervical disc disorder with radiculopathy, unspecified cervical region (principal); M48.02 Spinal stenosis, cervical region; M96.1 Postlaminectomy syndrome, not elsewhere classified; M25.511 Pain in right shoulder; G47.30 Sleep apnea, unspecified; M19.90 Unspecified osteoarthritis, unspecified site; Z72.89 Other problems related to lifestyle; Z88.6 Allergy status to analgesic agent; Z79.899 Other long term (current) drug therapy; Z98.890 Other specified postprocedural states
CPT/HCPCS: 62321; J1030; J1040; Q9965

== ENCOUNTER → 2020-12-27 | Outpatient (CLI) | payer BC ==
[~2020-12-27] MED LIST changes: -IOHEXOL 180 MG/ML 10 ML VIAL. ONE; -methylPREDNISolone ACETATE 40 MG/ML VIAL. ONE; -methylPREDNISolone ACETATE 80 MG/ML VIAL. ONE
--- NOTE | 2020-12-27 17:51 | KCIC ---
EXAM: MRI RIGHT SHOULDER WITHOUTCONTRAST INDICATION: Fall several days ago, right shoulder pain COMPARISON: Right shoulder radiograph 12/25/2020 TECHNIQUE: Multiplanar, multisequence imaging of the right shoulder without contrast. FINDINGS: ROTATOR CUFF: There is a full-thickness tear of the anterior and mid supraspinatus tendon just proxim al to the footprint measuring 2.2 x 0.7 cm in coronal by sagittal diameter. No retraction of fibers. This superimposed on mild to moderate supraspinatus tendinopathy. There is mild infraspinatus tendino simon. Partial tear of the cranial subscapularis tendon. Teres minor tendon is intact. No rotator cuf f muscle atrophy or edema. LABRUM: Superior labral degeneration. BICEPS TENDON: There is a longitudinal split tear of the intra-articular biceps tendon extending into the groove, medially subluxed and perched on the groove. ACROMIOCLAVICULAR JOINT: Mild acromioclavicular degenerative joint disease. Type I acromion without d ownsloping. GLENOHUMERAL JOINT: Cartilage is intact. Alignment is normal. There are cysts in the posterior superi or humeral head. Marrow signal is otherwise normal. OTHER: Small joint effusion and fluid in the subacromial-subdeltoid bursa.. IMPRESSION: 1. Full-thickness tear of the supraspinatus tendon without retraction. 2. Partial-thickness tear of the subscapularis tendon. 3. Longitudinal split tear of the biceps tendon. Electronically signed by: Angelic Caruso MD (12/27/2020 5:48 PM) [id number]
== END ==
LOC: KCIC MRI 12:41
PROVIDERS: ATTEND Physician Assistant Medical
DX: S46.211A Strain of muscle, fascia and tendon of other parts of biceps, right arm, initial encounter (principal); M75.121 Complete rotator cuff tear or rupture of right shoulder, not specified as traumatic; M19.011 Primary osteoarthritis, right shoulder; M25.411 Effusion, right shoulder; X58.XXXA Exposure to other specified factors, initial encounter; Y93.89 Activity, other specified; Y92.89 Other specified places as the place of occurrence of the external cause; Y99.8 Other external cause status
CPT/HCPCS: 73221

== ENCOUNTER → 2021-02-19 | Outpatient (CLI) | payer BC ==
[~2021-02-19] MED LIST changes: +ASCO500C9 PO; +DOCU-148 PO; -DOCU-153 PO; +IOHEXOL 180 MG/ML 10 ML VIAL. ONE; +methylPREDNISolone ACETATE 80 MG/ML VIAL. ONE
--- NOTE | 2021-02-19 11:30 | PDOC ---
Progress Note - Pain Clinic Date of Service: DOS: DATE: 02/19/21 TIME: 11:26 Diagnosis: Dx: Cervical radiculopathy with cervical spinal stenosis and cervical degenerative disc disease with cervical postlaminectomy syndrome Lumbar to colopathy with lumbar postlaminectomy syndrome Right shoulder joint pain with rotator cuff tear History or Present Illness: HPI: 61-year-old male returns for follow-up status post cervical epidural steroid action x1. Patient reports about 50% improvement overall since significant pain still in the right shoulder and arm and tingling in the left shoulder and arm with numbness and tingling in the hand patient reports that he has had increased pain with his right shoulder as he had tripped over his dog few weeks ago and fell on his right shoulder causes him significant pain which is new from last exam patient reports the left arm is always been the most painful one with ra diating pain to the hand numbness and tingling but now the right side after injury has gotten much worse. Patient did have an MRI scan for his primary physician with rotator cuff tear evident. Patient reports pain in the base the neck and shoulders not aching dull tight alternating shooting in the left arm and the right shoulder tingling and burning in the base the neck and the right shoulder radiating constant in the left arm and hand. Patient rates pain as 8 on scale 10 is worst over the past week 7 on average 7 its least a 7 today. Patient reports no motor or sensory deficit no bowel or bladder incontinence Physical Exam: VS: Blood pressure 109/76 pulse 83 respiration 16, temperature is 97.6 F weight is 247 pounds PE: PHYSICAL EXAMINATION: GENERAL: The patient is awake, alert, oriented, appropriate, very pleasant in demeanor HEENT: Shows normocephalic, atraumatic. Extraocular movements are intact and symmetrical. Patient wearing eyeglasses oral cavity: Mucous membranes moist and pink. Dentition is intact. NECK: Shows anterior throat supple without palpable lymphadenopathy noted. Swallow reflex symmetrical. CHEST: Shows normal on inspection. Breath sounds are clear bilaterally, distant but no rales or rhonchi. HEART: Shows S1, S2 clear. No murmurs auscultated. ABDOMEN: Soft, nontender, nondistended, obese with well-healed surgical scarring noted. No palpable organomegaly is noted. No rebound or guarding demonstrated. BACK: Shows spine grossly in the midline. Normal-appearing cervical lordotic curvature. Cervical paraspinous muscles show symmetrical inspection, on palpation some moderate tenderness diffusely bilaterally diffusely without significant radiation. Patient shows good rotation motion cervical spine both laterally as well as extension flexion without significant difficulty. There is slightly increased thoracic kyphosis, some minor flattening of the lumbar lordotic curvature. Lumbar paraspinous muscles show symmetrical on inspection, on palpation shows some moderate tenderness diffusely throughout the upper, middle and lower distribution of the paraspinous muscles, but without specific trigger points, without radiation of pain. The patient has good rotational motion of the lumbar spine, both laterally as well as extension and flexion without significant difficulty. No tenderness over the spinous processes, sacrum or sacroiliac regions. EXTREMITIES: Lower extremities show deep tendon reflexes 1+ in the patellar and tendo calcaneus tendons. Motor exam is 5 on a scale of 5 with right dorsiflexion, extension, quadriceps and hamstring flexion and 5/5 on the left. Peripheral pulses are 1+ posterior tibial. No peripheral edema is noted bilaterally. Lower extremities are warm and dry to touch, equal in color and appearance. Upper extremities show deep tendon reflexes 2+ in the bicep tricep tendons motor exam with optometry professor strength rated 5 out of 5 bicep tricep flexion 4-5 on the right secondary to pain in the shoulder and 5 5 on the left shoulder shrug strong and intact without loss of strength on resistance bilaterally. Patient's right shoulder shows significant tenderness abduction past 45 degrees both actively and passively left side is normal with rotation. SKIN: Shows warm and dry, good turgor. No edema. No sores, rashes or bruising throughout. Procedure: Procedure: Options discussed with patient. Patient's old chart was reviewed his his current medication regimen updated current review of systems updated today as well. We will proceed with a cervical epidural steroid injection today with fluoroscopic guidance. Risks were discussed including but not limited to: Bleeding, infection, possibility of epidural hematoma and subsequent neurological compromise, dural puncture, headaches, spinal cord and/or nerve damage, side effects of steroid medication, and poor results regarding pain control. Patient understands and wished to proceed. Patient will return to the clinic in approximately 1 month for follow-up, was counseled as return appointment, activity level, and side effects aware of. Medication Injected: Med Injected: Procedure cervical epidural steroid injection at the C6-7 level, using local anesthetic under sterile prep and drape using C-arm fluoroscopic guidance under local anesthesia medications injected ;120 mg Depo-Medrol +5 mL normal saline and 2 mL contrast; condition at discharge is stable patient tolerated procedure well. and had no complications Condition at Discharge: Condition at Discharge: Condition at discharge is stable, patient alert the procedure well and had no complications. BRITTANY AVILA MD Feb 19, 2021 11:30
--- NOTE | 2021-02-19 11:31 | PDOC4 ---
Procedure Note: ICD 10 Code: ICD 10 Code: M54.12 M 48.02 M50.30 M 96.1 Procedure Note: Patient was consented for cervical epidural steroid injection with fluoroscopic guidance. Risks were discussed including but not limited to: Bleeding, infection, possibility of epidural hematoma and subsequent neurological comprom ise, dural puncture, headaches, spinal cord and/or nerve damage, side effects of steroid medication, and poor results regarding pain control. Patient understands and wished to proceed. Procedure cervical epidural steroid injection at the C6-7 level, using local anesthetic under sterile prep and drape using C-arm fluoroscopic guidance under local anesthesia medications injected ;120 mg Depo-Medrol +5 mL normal saline and 2 mL contrast; condition at discharge is stable patient tolerated procedure well. and had no complications BRITTANY AVILA MD Feb 19, 2021 11:31
== END | disposition home or self-care (01) ==
LOC: PNCL 10:46
PROVIDERS: ATTEND Anesthesiology
DX: M50.10 Cervical disc disorder with radiculopathy, unspecified cervical region (principal); M48.02 Spinal stenosis, cervical region; M96.1 Postlaminectomy syndrome, not elsewhere classified; M75.101 Unspecified rotator cuff tear or rupture of right shoulder, not specified as traumatic; G47.30 Sleep apnea, unspecified; M19.90 Unspecified osteoarthritis, unspecified site; Z72.89 Other problems related to lifestyle; Z79.899 Other long term (current) drug therapy; Z98.890 Other specified postprocedural states; Z88.6 Allergy status to analgesic agent
CPT/HCPCS: 62321; J1040; Q9965

== ENCOUNTER 2021-04-19 06:06 | Day surgery (SDC) | payer BC ==
[~2021-04-19] VITALS: Ht 177.8 cm; Wt 113.6 kg
[~2021-04-19 06:06] MED LIST changes: +HYDROmorphone 2 MG/ML VIAL IVP PRN; -IOHEXOL 180 MG/ML 10 ML VIAL. ONE; +IV RINGERS,LACTATED 1000ML 1,000 ML IV SCH; +MORPHINE SULFATE 2 MG/ML INJ. IVP PRN; +PROCHLORPERAZINE 10 MG/2 ML VIAL. IVP PRN; +fentaNYL PF VIAL 100 MCG/2 ML VIAL IVP PRN; -methylPREDNISolone ACETATE 80 MG/ML VIAL. ONE
[2021-04-19] MEDS ORDERED: DEXAMETHASONE SOD PHOS 4 MG/ML VIAL ONE (06:26)
[2021-04-19] MEDS ORDERED: PROPOFOL 10 MG/ML (20ML) VIAL. IV ONE (06:26)
[2021-04-19] MEDS ORDERED: ONDANSETRON PF 4 MG/2 ML VIAL. ONE (06:26)
[2021-04-19] MEDS ORDERED: ROCURONIUM 50 MG/5 ML VIAL. ONE (06:26)
[2021-04-19] MEDS ORDERED: LIDOCAINE 2% PF 5 ML VIAL. ONE (06:26)
[2021-04-19 06:40] VITALS: BP 129/87
[2021-04-19] MEDS ORDERED: fentaNYL PF VIAL 100 MCG/2 ML VIAL ONE ×2 (06:54→10:18)
[2021-04-19] MEDS ORDERED: MIDAZOLAM HCL/PF 2 MG/2 ML VIAL. ONE (06:54)
[2021-04-19] MEDS ORDERED: ROPIVacaine 0.5% PF 20 ML VIAL. ONE (07:01)
[2021-04-19] MEDS ORDERED: EPINEPHrine VIAL 30 MG/30 ML VIAL ONE (07:03)
[2021-04-19] MEDS ORDERED: SUCCINYLCHOLINE 200 MG/10 ML VIAL. ONE (07:14)
[2021-04-19] MEDS ORDERED: GLYCOPYRROLATE 1 MG/5 ML VIAL. ONE (08:29)
[2021-04-19] MEDS ORDERED: NEOSTIGMINE METHYLSULFATE 5 MG/5 ML SYRINGE. ONE (08:30)
[2021-04-19] MEDS: fentaNYL PF VIAL 100 MCG/2 ML VIAL IVP PRN ×2 (10:21→10:45)
[2021-04-19] MEDS ORDERED: OXYC1TAB19 PO (10:32)
--- NOTE | 2021-04-19 10:37 | DISCH ---
DISCHARGE INSTRUCTIONS Condition on Discharge Condition on Discharge: Stable Activity After Discharge Activity Instructions for Disc: Other, see below (May do fine motor use with elbow at side such as eating writing typing, no lifting arm away from the side under its own power) Lifting Instructions after Dis: No pulling or pushing, Do not lift >10 pounds Exercise Instruction after Dis: Exercise per therapy Weight Bearing Status after Di: Non weight bearing Diet after Discharge Diet after Discharge: Regular Additional Diet Restrictions: resume home diet, soft foods Wound Incision Care Wound/Incision Care: Ice to area for comfort, Change dressing (May remove dressing in 2 days may then shower no soaking until sutures removed), May get incision wet Community/Resources/Services Services at Discharge: PT EVALUATE & TREAT (Passive range of motion only for 4 weeks postoperatively to protect rotator cuff repair) Contacting the after DC Call your doctor for: Concerns you may have Follow-Up Follow up with: Dr. Cristina or Jonelle 10 days Treatment/Equipment after DC Adaptive Equipment Issued: None SUYAPA CRISTINA MD Apr 19, 2021 10:37
[2021-04-19] MEDS ORDERED: oxyCODONE/APAP 7.5/325 1 TAB TABLET PO ONE (10:45)
[2021-04-19 10:48] VITALS: BP 133/73
--- NOTE | 2021-04-19 12:30 | PDOC4 ---
Operative Note Operative Note Date of surgery: 04/19/2021 Preoperative diagnosis: Rotator cuff tear and biceps long head compromise Postoperative diagnosis: Same with full-thickness rotator cuff tear superior labral fraying and long head biceps compromise Operative procedure: Right shoulder arthroscopy mini open rotator cuff repair biceps tenodesis, labral debridement and subacromial decompression Surgeon: [employer] Officer: Sav block assist Anesthesia: General plus scalene block Estimated blood loss: 10 cc Complications: None Operative indications: Please see my orthopedic clinic note for detailed operative indications and note that we had covered treating the rotator cuff tear and biceps labral pathology with likely rotator cuff repair and biceps tenodesis as well as addressing any other pathological conditions. I talked to him about risk benefits postoperative course of the procedure including the possibility of infection nonhealing continued pain stiffness nerve or blood vessel damage medical or other anesthetic complications among others in the long recovery timeframe typically expected in recovery and need for extensive home exercises and physical therapy. All his questions were answered he wishes to pr oceed with surgical evaluation and treatment Operative text: Patient was identified procedure verified patient placed in the supine position on operating table. After adequate amount of general anesthesia were administered plus a pre-existing scalene block patient was placed in the decubitus position right side up all bony promises were well-padded he was found to have full range of motion with no instability. The right shoulder was then prepped and draped in standard sterile fashion with the arm placed in 10 pounds of traction with the arthroscopic arm ami. After timeout was performed patient procedure identified and verified a standard posterior portal was established anterior portal established using spinal needle localization and the shoulder joint was systematically examined. He was noted to have a full- thickness tear of the supraspinatus and infraspinatus insertion. Biceps anchor was compromised and the biceps tendon was very irritated and frayed. Superior labrum also had fraying which was trimmed back to stable tissue with the arthroscopic bipolar electrocautery biceps was tagged and tenotomized. Subacromial space was then entered and subacromial bursa was cleared to allow visualization and a large anterior acromial spur was converted to a type I acromion using the arthroscopic bur and cutting block technique. The acromioclavicular joint was not compromised. The lateral portal was enlarged to a mini open incision through which rotator cuff repair was carried out by drilling was carried out for a total of 2 double loaded juggernaut anchors with tape type suture. Sutures were passed in a simple fashion and a Charitybuzzek lateral row anchor was placed reapposed the rotator cuff footprint in all degrees of internal/external rotation. Biceps groove was unroofed and the biceps tendon delivered through an anterior portal and was tensioned and tenodesed with a 9 mm x 16 mm Quatro bolt tenodesis screw which gave excellent purchase and restored biceps contour. The joint was drained of arthroscopic fluid portals were closed with nylon suture sterile dressings were applied patient was placed in immobilizer and returned to recovery room in stable condition having tolerated procedure well. Sav [employer] legal assistant was present for the procedure assisted in patient positioning prepping draping retraction closure and dressings SUYAPA DONOVAN MD Apr 19, 2021 12:30
== END 2021-04-19 11:40 | disposition home or self-care (01) ==
LOC: SURG 06:06
PROVIDERS: ATTEND Orthopaedic Surgery
DX: M75.101 Unspecified rotator cuff tear or rupture of right shoulder, not specified as traumatic (principal); G47.30 Sleep apnea, unspecified; M19.90 Unspecified osteoarthritis, unspecified site; F32.9 Major depressive disorder, single episode, unspecified; Z79.899 Other long term (current) drug therapy; Z98.890 Other specified postprocedural states; Z88.6 Allergy status to analgesic agent; X58.XXXA Exposure to other specified factors, initial encounter; Y93.89 Activity, other specified; Y92.89 Other specified places as the place of occurrence of the external cause; Y99.8 Other external cause status
CPT/HCPCS: 29827; 29828; 64415; A4209; A4364; A4565; A4930; C1713; J0171; J0330; J0690; J1100; J2250; J2405; J2704; J2710; J2795; J3010; J3490; A4452